=== PATIENT | male | born 1970 | race Hispanic/Latino ===

== ENCOUNTER 2020-02-27 00:03 | Emergency (ER) | payer BC, OTHER ==
[2020-02-27] MEDS ORDERED: METOCLOPRAMIDE 10 MG/2 ML VIAL ONE (00:50)
[2020-02-27] MEDS ORDERED: FAMOTIDINE/PF 20 MG/2 ML VIAL IV ONE (00:51)
[2020-02-27] MEDS ORDERED: ONDANSETRON HCL 4 MG/2 ML VIAL ONE (00:51)
[2020-02-27] MEDS ORDERED: PANTOPRAZOLE 40 MG/VIAL ONE (00:51)
[2020-02-27] MEDS ORDERED: SODIUM CHLORIDE 0.9% 1000ML 1,000 ML IV ONE (00:52)
[2020-02-27 00:57] LABS: BASOPHILS % (AUTO) 1.3 % (0.0-5.0); HEMATOCRIT 43.2 % (42-54); LYMPHOCYTES % (AUTO) 28.3 % (21.0-51.0); MEAN CORPUSCULAR HEMOGLOBIN 31.5 pg (27.0-33.0); MEAN CORPUSCULAR HGB CONC 35.2 g/dL (32.0-36.0); MEAN CORPUSCULAR VOLUME 89.4 fL (79-99); MONOCYTES % (AUTO) 8.2 % (3.0-13.0); NEUTROPHILS % (AUTO) 58.8 % (40.0-77.0); PLATELET COUNT (AUTO) 272 K/uL (130-400); RED BLOOD CELL COUNT(AUTO) 4.83 MIL/uL (4.50-6.20); RED CELL DISTRIBUTION WIDTH 12.1 % (11.0-15.5); WHITE BLOOD COUNT (AUTO) 10.3 K/uL (4.8-10.8)
[2020-02-27 00:58] LABS: APPEARANCE,URINE Clear (CLEAR); BILIRUBIN,URINE Negative (NEGATIVE); COLOR,URINE Yellow (YELLOW); GLUCOSE, URINE (UA) Negative (NEGATIVE); KETONES,URINE Negative (NEGATIVE); LEUKOCYTE ESTERASE ,URINE Negative (NEGATIVE); NITRATE,URINE Negative (NEGATIVE); OCCULT BLOOD,URINE Negative (NEGATIVE); PROTEIN,URINE Negative (NEGATIVE)
[2020-02-27 01:13] LABS: CREATININE 1.2 mg/dL (0.5-1.5); POTASSIUM 3.7 mmol/L (3.5-5.1)
[2020-02-27 01:17] LABS: ALBUMIN 4.2 g/dL (3.5-5.0); BILIRUBIN,TOTAL 0.6 mg/dL (0.2-1.0); TOTAL PROTEIN, SERUM 7.9 g/dL (6.0-8.3)
[2020-02-27 01:30] LABS: INR 1.09 (0.85-1.15); PROTHROMBIN TIME 11.6 SEC (9.6-11.6)
[2020-02-27 01:31] LABS: PARTIAL THROMBOPLASTIN TIME 29.4 SEC (26.3-35.5)
[2020-02-27] MEDS ORDERED: KETOROLAC TROMETHAMINE 30MG/ML ONE (02:33)
== END 2020-02-27 02:45 | disposition home or self-care (01) ==
LOC: EDH 00:03
DX: R10.13 Epigastric pain (principal); E86.0 Dehydration; K21.9 Gastro-esophageal reflux disease without esophagitis; Z88.2 Allergy status to sulfonamides
CPT/HCPCS: 36415; 76705; 80053; 81003; 83690; 84484; 85025; 85610; 85730; 96361; 96374; 96375; 99284; C9113; J1885; J2405; J2765; J3490; J7030

== ENCOUNTER 2024-12-13 16:19 | Emergency (ER) | payer BC, OTHER ==
[~2024-12-13] VITALS: Ht 180.3 cm; Wt 104.3 kg
[2024-12-13 17:01] LABS: ADD UA MICROSCOPIC YES; APPEARANCE,URINE CLEAR (CLEAR); GLUCOSE, URINE (UA) NEGATIVE (NEGATIVE); LEUKOCYTE ESTERASE ,URINE NEGATIVE Leu/uL (NEGATIVE); NITRATE,URINE NEGATIVE (NEGATIVE); OCCULT BLOOD,URINE +- (TRACE) (NEGATIVE)
--- NOTE | 2024-12-13 17:18 | NUR ---
PATIENT TRANSPORTED TO CT BY DIGITIZER.
[2024-12-13 17:47] LABS: IMMATURE GRANULOCYTE ABSOLUTE 0.07 K/uL (0-1); NUCLEATED RED BLOOD CELLS 0.0 % (0.0-0.19); PLATELET COUNT (AUTO) 238 K/uL (130-400); RED BLOOD CELL COUNT(AUTO) 4.72 MIL/uL (4.50-6.20); RED CELL DISTRIBUTION WIDTH 12.3 % (11.0-15.5); WHITE BLOOD COUNT (AUTO) 10.5 K/uL (4.8-10.8)
[2024-12-13 17:57] LABS: CREATININE 0.9 mg/dL (0.5-1.3); GLOMERULAR FILTR. RATE CALC 103.0 mL/min (>90); GLUCOSE,RANDOM 102.0 mg/dL (70-105); SODIUM SERUM 140.0 mmol/L (136-145); UREA NITROGEN, BLOOD 14.0 mg/dL (7-18)
[2024-12-13 18:01] LABS: ASPARTATE AMINOTRANSFERASE 19.0 U/L (10-37); TOTAL PROTEIN, SERUM 7.2 g/dL (6.0-8.3)
[2024-12-13] MEDS: FAMOTIDINE 20MG VIAL IV ONE (18:01)
[2024-12-13] MEDS: 0.9%NACL 1000ML 1,000 ML IV STA (18:01)
--- NOTE | 2024-12-13 18:22 | HMCIMG ---
EXAM: CT Abdomen and Pelvis Without IV contrast CLINICAL HISTORY: abdominal pain, prostate pain TECHNIQUE: Axial computed tomography images of the abdomen and pelvis without intravenous contrast. CONTRAST: No IV contrast. COMPARISON: None provided. FINDINGS: LUNG BASES: The lung bases appear clear. No pleural effusions are seen. LIVER: Unremarkable. There is a 2.6 cm hypoattenuating cystic structure within the dome of the liver measuring approximately 8 Hounsfield units GALLBLADDER AND BILE DUCTS: The gallbladder is surgically absent. No biliary ductal dilatation is evident. PANCREAS: Unremarkable. SPLEEN: Unremarkable. ADRENAL GLANDS: Unremarkable. KIDNEYS, URETERS, AND BLADDER: There is a 2.7 cm partially thin rim calcified right renal cystic structure. The kidneys are otherwise normal in appearance. The course and caliber of the visible ureters are normal. No ureterolithiasis or bladder calculi s. There is no hydronephrosis or hydroureter. No urinary calculi are seen. STOMACH AND BOWEL: Unremarkable appearance of the stomach and bowel. No evidence of bowel obstruction. No evidence suggesting enteritis or colitis. Mild transverse, descending and sigmoid colon diverticulosis without CT evidence of acute diverticulitis APPENDIX: No evidence of acute appendicitis on CT examination. PERITONEUM: No free fluid. No free air. LYMPH NODES: No lymphadenopathy is evident. REPRODUCTIVE: Mild enlargement of the prostate gland. There are a few chronic appearing calcifications likely chronic prostatitis. VASCULATURE: No evidence of abdominal aortic aneurysm. BONES: No aggressive appearing osseous lesion. No acute osseous pathology evident. IMPRESSION: 1. No acute intraabdominal or pelvic pathology. 2. 2.6 cm hypoattenuating cystic structure in the dome of the liver. Recommend ultrasound the liver for further evaluation. 3. 2.7 cm partially thin rim calcified right renal cyst. Recommend ultrasound for further evaluation 4. Mild descending and sigmoid colon diverticulosis without evidence of acute diverticulitis. 5. Status post cholecystectomy. /[place]
[2024-12-13] MEDS ORDERED: CIPR-278 PO (18:52)
--- NOTE | 2024-12-13 18:53 | ERN ---
ED Note History of Present Illness Stated Complaint: ABD PAIN Chief Complaint: Abdominal Pain Time Seen by MD: 16:46 Time Seen by Midlevel: 16:50 Dictation: 54-year-old male coming in with complaints of feeling pressure along the prostate, states he has has a history of prostatitis, generalized abdominal pain with diarrhea onset yesterday. Denies having any fever, nausea vomiting. Denies any blood in the urine or urinary frequency or dysuria. Allergies: Coded Allergies: Sulfa (Sulfonamide Antibiotics) (Unverified Allergy, Unknown, 12/13/24) Home Meds Active Scripts Ciprofloxacin HCl (Cipro) 500 Mg Tablet, 1 TAB PO BID for 10 Days, #20 TAB 0 Refills Prov:BLAZE RICHARDSON NP 12/13/24 Past Medical History Past Medical History: Prostatitis Surgical History: None Review of System Dictation Constitutional: Negative for fever,chills, and weight loss Eyes: Negative for injury, pain,redness, and discharge ENT: Negative for injury,pain or swelling Cardiovascular: Negative for chest pain, palpitations, and edema Respiratory: Negative for shortness of breath, cough, and wheezing, Abdomen/GI: Generalized abdominal pain, nausea, vomiting, diarrhea, and constipation Back: Negative for injury and pain : Negative for injury, bleeding and discharge MS/Extremity: Negative for injury and deformity Skin: Negative for rash, and discoloration Neuro: Negative for headache, weakness, numbness, tingling, and seizure Psych: Negative for suicide ideation, homicidal ideation, and hallucinations Review of Systems: was completed Initial Vital Sign VS Vital Signs Date Time Temp Pulse Resp B/P (MAP) Pulse Ox O2 Delivery O2 Flow Rate FiO2 12/13/24 16:21 98.4 91 18 157/94 97 12/13/24 16:43 Room Air* 0 21 Physical Exam Dictation General: awake, alert, NAD Head/Face: Normocephalic, atraumatic Eyes: PERRL, EOMI, vision at baseline ENT: oral cavity clear, TMs clear, no signs of infection Neck: Trachea midline, supple, no nuchal rigidity Cardiovascular: RRR, normal S1/S2, No MRGs, no JVD Respiratory: CTAB, no respiratory distress, No rales or wheezes Abdomen: Soft, non-tender, non-distended, normal bowel sounds, no guarding or rebound. Skin: Warm, dry, normal turgor, no rash MS/Extremity: Pulses equal, no cyanosis, neurovascular intact, FROM Neuro: COAx4, GCS 15, strength 5/5, CN 2-12 intact, normal cerebellar exam, normal gait, Psych: Normal behavior, mood, and affect normal Results (Laboratory/Radiology) Laboratory/Radiology Laboratory Tests Test 12/13/24 16:20 12/13/24 17:42 Urine Color LIGHT-YELLOW (YELLOW) Urine Appearance CLEAR (CLEAR) Urine pH 6.5 (5.0-8.0) Urine Specific [place] 1.021 (1.001-1.031) Urine Protein NEGATIVE mg/dL (NEGATIVE) Urine Glucose (UA) NEGATIVE mg/dL (NEGATIVE) Urine Ketones NEGATIVE mg/dL (NEGATIVE) Urine Occult Blood +- (TRACE) (NEGATIVE) H Urine Nitrate NEGATIVE (NEGATIVE) Urine Bilirubin NEGATIVE mg/dL (NEGATIVE) Urine Urobilinogen 0.2 mg/dL (0.2-1.0) Urine Leukocyte Esterase NEGATIVE Yuriy/uL Urine RBC 2-5 /HPF (0-1) H Urine WBC 0-1 /HPF (0-1) Urine Bacteria None /HPF (None Seen) White Blood Count 10.5 K/uL (4.8-10.8) Red Blood Count 4.72 MIL/uL (4.50-6.20) Hemoglobin 14.9 g/dL (14.0-18.0) Hematocrit 43.3 % (42-54) Mean Corpuscular Volume 91.7 fL (79-99) Mean Corpuscular Hemoglobin 31.6 pg (27.0-33.0) Mean Corpuscular Hemoglobin Concent 34.4 g/dL (32.0-36.0) Red Cell Distribution Width 12.3 % (11.0-15.5) Platelet Count 238 K/uL (130-400) Mean Platelet Volume 8.4 fL (7.5-10.5) Immature Granulocyte % (Auto) 0.7 % (0-1) Neutrophils (%) (Auto) 87.1 % (40.0-77.0) H Lymphocytes (%) (Auto) 5.5 % (21.0-51.0) L Monocytes (%) (Auto) 5.0 % (3.0-13.0) Eosinophils (%) (Auto) 1.3 % (0.0-8.0) Basophils (%) (Auto) 0.4 % (0.0-5.0) Neutrophils # (Auto) 9.1 K/uL (1.8-7.7) H Lymphocytes # (Auto) 0.6 K/uL (1.0-4.8) L Monocytes # (Auto) 0.5 K/uL (0.1-1.0) Eosinophils # (Auto) 0.14 K/uL (0.00-0.70) Basophils # (Auto) 0.04 K/uL (0.00-0.20) Absolute Immature Granulocyte (auto 0.07 K/uL (0-1) Nucleated Red Blood Cells 0.0 % (0.0-0.19) White Cell Morphology Comment See comments Sodium Level 140 mmol/L (136-145) Potassium Level 4.0 mmol/L (3.5-5.1) Chloride Level 103 mmol/L (101-111) Carbon Dioxide Level 29 mmol/L (21-32) Blood Urea Nitrogen 14 mg/dL (7-18) Creatinine 0.9 mg/dL (0.5-1.3) Glomerular Filtration Rate Calc 103 mL/min (>90) Random Glucose 102 mg/dL (70-105) Total Calcium 8.5 mg/dL (8.5-10.1) Total Bilirubin 1.2 mg/dL (0.2-1.0) H Direct Bilirubin 0.3 mg/dL (0.0-0.3) Aspartate Amino Transf (AST/SGOT) 19 U/L (10-37) Alanine Aminotransferase (ALT/SGPT) 26 U/L (12-78) Alkaline Phosphatase 59 U/L (50-136) Total Protein 7.2 g/dL (6.0-8.3) Albumin 4.0 g/dL (3.5-5.0) Lipase 36 U/L (16-77) Labs Reviewed?: Yes CT Scan Comment: [place] [id number] [id number] IMAGING REPORT Signed PATIENT: SURYA GUADARRAMA MR#: [id number] : 1970 SEX: M AGE: 54 LOCATION: [facility] ORDER 53 STATUS: REG ER REPORT#: [id number] SERVICE 51 REASON: abdominal pain, prostate pain ORDERING PHYSICIAN: BLAZE RICHARDSON NP PROCEDURE: ABD PEL WO - CT ABDOMEN/PELVIS W/O CONTRAST EXAM: CT Abdomen and Pelvis Without IV contrast CLINICAL HISTORY: abdominal pain, prostate pain TECHNIQUE: Axial computed tomography images of the abdomen and pelvis without intravenous contrast. CONTRAST: No IV contrast. COMPARISON: None provided. FINDINGS: LUNG BASES: The lung bases appear clear. No pleural effusions are seen. LIVER: Unremarkable. There is a 2.6 cm hypoattenuating cystic structure within the dome of the liver measuring approximately 8 Hounsfield units GALLBLADDER AND BILE DUCTS: The gallbladder is surgically absent. No biliary ductal dilatation is evident. PANCREAS: Unremarkable. SPLEEN: Unremarkable. ADRENAL GLANDS: Unremarkable. KIDNEYS, URETERS, AND BLADDER: There is a 2.7 cm partially thin rim calcified right renal cystic structure. The kidneys are otherwise normal in appearance. The course and caliber of the visible ureters are normal. No ureterolithiasis or bladder calculi s. There is no hydronephrosis or hydroureter. No urinary calculi are seen. STOMACH AND BOWEL: Unremarkable appearance of the stomach and bowel. No evidence of bowel obstruction. No evidence suggesting enteritis or colitis. Mild transverse, descending and sigmoid colon diverticulosis without CT evidence of acute diverticulitis APPENDIX: No evidence of acute appendicitis on CT examination. PERITONEUM: No free fluid. No free air. LYMPH NODES: No lymphadenopathy is evident. REPRODUCTIVE: Mild enlargement of the prostate gland. There are a few chronic appearing calcifications likely chronic prostatitis. VASCULATURE: No evidence of abdominal aortic aneurysm. BONES: No aggressive appearing osseous lesion. No acute osseous pathology evident. IMPRESSION: 1. No acute intraabdominal or pelvic pathology. 2. 2.6 cm hypoattenuating cystic structure in the dome of the liver. Recommend ultrasound the liver for further evaluation. 3. 2.7 cm partially thin rim calcified right renal cyst. Recommend ultrasound for further evaluation 4. Mild descending and sigmoid colon diverticulosis without evidence of acute diverticulitis. 5. Status post cholecystectomy. /[place] DICTATED BY: SUHAS TRAMMELL MD DATE: 12/13/241919 ELECTRONICALLY SIGNED BY: SUHAS TRAMMELL MD DATE: 12/13/241919 ED Course ED Course Orders Procedure Category Date Status Time Cbc With Differential LAB 12/13/24 Complete 16:52 Basic Metabolic Panel LAB 12/13/24 Complete 16:52 Lipase LAB 12/13/24 Complete 16:52 Hepatic Function Panel LAB 12/13/24 Complete 16:52 Urinalysis Profile LAB 12/13/24 Complete 16:52 Ct Abdomen/Pelvis W/O CT 12/13/24 Resulted Contrast 16:52 0.9%Nacl 1000ml (Ns PHA 12/13/24 Complete 1000ml) 16:53 Ondansetron 4mg Inj PHA 12/13/24 Complete (Zofran 4mg Inj) 17:00 Famotidine 20mg Vial PHA 12/13/24 Complete (Pepcid 20mg Vial) 17:00 Ketorolac PHA 12/13/24 Complete Tromethamine 15mg/Ml 17:00 Current Medications Medications (Trade) Dose Ordered Sig/Radha Route PRN Reason Start Time Stop Time Status Last Admin Dose Admin Famotidine (Pepcid 20mg Vial) 20 mg ONCE ONCE IV 12/13/24 17:00 12/13/24 17:01 DC 12/13/24 18:01 Ketorolac Tromethamine (toRADol) 15 mg ONCE ONCE IV 12/13/24 17:00 12/13/24 17:01 DC 12/13/24 18:01 Ondansetron HCl (zoFRAN 4MG INJ) 4 mg ONCE ONCE IVP 12/13/24 17:00 12/13/24 17:01 DC 12/13/24 18:01 Sodium Chloride 1,000 ml @ 1,000 mls/hr Q1H STAT IV 12/13/24 16:53 12/13/24 17:52 DC 12/13/24 18:01 Vital Signs Date Time Temp Pulse Resp B/P (MAP) Pulse Ox O2 Delivery O2 Flow Rate FiO2 12/13/24 19:20 98.2 88 17 135/71 98 Room Air* 0 21 12/13/24 18:56 98.1 97 17 146/78 98 Room Air* 0 12/13/24 16:43 98.1 102 19 148/94 98 Room Air* 0 21 12/13/24 16:21 98.4 91 18 157/94 97 Medical Decision Making MDM MDM: 54-year-old male coming in with complaints of feeling pressure along the prostate, states he has has a history of prostatitis, generalized abdominal pain with diarrhea onset yesterday. Denies having any fever, nausea vomiting. Denies any blood in the urine or urinary frequency or dysuria.BC shows no leukocytosis, no anemia, no thrombocytopenia. Chemistry unremarkable.CBC shows no leukocytosis, no anemia, no thrombocytopenia. Chemistry unremarkable. CT scan of the abdomen and pelvis shows a 2.7 cm right renal cystic structure. Mild descending and sigmoid colon diverticulosis with the evidence of diverticulitis. Differential diagnosis: Prostatitis, urinary tract infection, urinary retention Rationale: Tests considered and ordered secondary to shared decision making include: Previous outside records reviewed: Old ER visits. Risk of complication and/or morbidity or mortality of patient management: None Medications-Per medication reconciliation Need for hospitalization: Patient does not meet criteria for hospitalization. Need for emergency major/minor surgery: No There are no social concerns with this patient. Prescription drug management Prescriptions will include symptomatic care Patient's prior external medical records from other ER visits were reviewed by me as indicated. Prior testing and results from previous visits were reviewed. Prior tests were taken into account with medical decision making and resource utilization, independent historian/historians were used to obtain complete medical history. I independently interpreted the test that were performed, results were reviewed by me and considered findings on radiology if ordered. Medical management and examination interpretation discussions were had by me with other qualified healthcare professionals as indicated for the patient's care. DX & DISP Disposition: Discharge Departure Impression: Primary Impression: Chronic prostatitis without hematuria Condition: Stable Scripts Ketorolac Tromethamine (Ketorolac Tromethamine) 10 Mg Tablet 1 TAB PO Q6HPRN PRN for pain for 3 Days, #12 TAB 0 Refills Prov: RICHARDSON,BLAZE [employer] 12/13/24 Ciprofloxacin HCl (Cipro) 500 Mg Tablet 1 TAB PO BID for 10 Days, #20 TAB 0 Refills Prov: RICHARDSON,BLAZE [employer] PERSON 12/13/24 Additional Instructions: Please follow up with your primary doctor. Take antibiotics as prescribed. To the hospital if you have any worsening symptoms. Referrals: MYNOR ANGELO MD (PCP) Time of Disposition: 18:51 I have reviewed the case, and I agree with, Diagnosis and Plan BLAZE RICHARDSON NP Dec 13, 2024 18:52
--- NOTE | 2024-12-13 19:18 | NUR ---
PT BLADDER SCAN SHOWS 11 ML AFTER VOIDING. ED PROVIDER MADE AWARE.
[2024-12-13 19:20] VITALS: BP 135/71; PULSE 88; RESP 17; TEMP 98.2; O2SAT 98
[2024-12-13] MEDS ORDERED: KETO10TA2 PO (19:27)
== END 2024-12-13 19:48 | disposition home or self-care (01) ==
LOC: EDH 16:19
DX: N41.1 Chronic prostatitis (principal); Z79.899 Other long term (current) drug therapy; Z88.2 Allergy status to sulfonamides; Z90.49 Acquired absence of other specified parts of digestive tract
CPT/HCPCS: 99284; 74176; 96374; 96375; 96361; 80076; 80048; 83690; 85025; 81001; 36415; J1885; J1308; J7030; J2405